=== PATIENT | female | born 1970 | race Caucasian/White ===

== ENCOUNTER → 2019-06-07 | Outpatient (CLI) | payer OTHER ==
[~2019-06-07] MED LIST: CHLOROQUINE PH PO; HYDROCODONE-AP1 EAC6 PO; IBUPROFEN 800800 M1 PO
== END ==
LOC: M.RAD 09:43
DX: Z12.31 Encounter for screening mammogram for malignant neoplasm of breast (principal)

== ENCOUNTER → 2020-10-02 | Outpatient (CLI) | payer OTHER | LOC: M.RAD 10:17 | PROVIDERS: ATTEND Internal Medicine | DX: Z12.31 Encounter for screening mammogram for malignant neoplasm of breast (principal) ==